=== PATIENT | female | born 1990 | race Caucasian/White ===

== ENCOUNTER 2016-06-05 00:53 | Emergency (ER) | payer OTHER ==
[2016-06-05 01:06] VITALS: TEMP 98; BMI 21.4
--- NOTE | 2016-06-05 01:11 | EDPRACDOC ---
- General Information Chief Complaint: Female Urogenital Problems Stated Complaint: ABDOMINAL PAIN Time Seen by Provider: 06/05/16 01:05 Information Source: Patient Mode Of Arrival: Car Home Medications: Home Medications Oxycodone Immediate Release [Oxycodone Immediate Release (OxyIR)] 5 mg PO Q6H PRN #20 tab 06/05/16 Phenazopyridine HCl [Pyridium] 200 mg PO TID #30 tablet 06/05/16 Sulfamethoxazole/Trimethoprim [Bactrim Ds Tablet] 1 tab PO BID #14 tab 06/05/16 Allergies/Adverse Reactions: Allergies Allergy/AdvReac Type Severity Reaction Status Date / Time No Known Allergies Allergy Verified 06/05/16 01:07 - History of Present Illness HPI: PT PRESENTS WITH LOWER BACK PAIN, SUPRAPUBIC PAIN AND DYSURIA. STATES THIS BEGAN EARLIER TODAY. STATES SHE WAS TREATED APPROX ONE MONTH AGO FOR A UTI. DENIES FEVER, CHILLS, NAUSEA OR VOMITING. Onset: Tuesday afternoon Urinary Pain Location: Reports: Suprapubic, Right Flank, Left Flank Symptom Onset: Reports: Gradual Pain Severity: Moderate Pain Quality: Reports: Aching, Burning History of: Reports: UTI : No (continuous active control) Oral Intake: Normal Urinary Output: Normal ED Past Medical History - History Reviewed Yes Nurses notes reviewed and agree except as marked - Patient Medical History Psychological History: Denies: Depression Surgical History: Denies: Hysterectomy - Social Medical History Smoking Status: Never smoker EDM Review of Systems - Review of Systems ROS Negative Except as Marked: Yes All systems reviewed and were negative except as marked - Physical Exam Constitutional: Alert Oriented to: Time, Person, Place Last recorded Vital Signs: Last Vital Signs Temp 98 F 06/05/16 01:02 Pulse 77 06/05/16 01:02 Resp 18 06/05/16 01:02 BP 119/63 06/05/16 01:02 Pulse Ox 98 06/05/16 01:02 Oxygen Pulse Oxygen Saturation 98 O2 Device Room Air Oxygen Flow Rate Fraction of Inspired Oxygen ( FIO2) - HEENT Head: Normal ( normocephalic) Eye Exam: Normal (PERRL, EOMI, Sclera white) Oropharynx: Normal (Pharynx:Moist without exudate,Gums-no swelling) Tympanic Membrane: Normal Nose: No Symptoms Reported (septum midline) Neck: Normal (FROM, trachea at midline) - Respiratory/Cardiovascular Respiratory: Normal - CTA (BBS clear to auscultation without adventitious sounds ) Cardiovascular: Normal (RRR without murmur, gallop or rub) - GI Auscultation: Normal (NABS) Palpation: Normal (Soft,No rebound or guarding, non distended) Tenderness: Moderate, Suprapubic, Other (LOWER BACK) Lara's Sign: Negative Rectal Exam: Deferred - Musculoskeletal Back: Normal (Non-Tender) Extremities: Normal (Normal tone, Pulses 2+ No cyanosis or edema, FROM) - Integumentary Skin: Normal, Warm, Dry Lymphatics: Normal (no adenopathy) - Neurologic Memory Impaired: Normal Motor Function: Normal (Normal tone, Pulses 2+ No cyanosis or edema, FROM) Cranial Nerve: Normal (CN II-X11 intact sensation, strength 5/5) Cerebellar: Normal Mood Description: Normal Perception: Normal - Differential Diagnosis Pyelonephritis, UTI Decision Time to Discharge: 01:49 - Departure Disposition: Home Condition: Stable Final Diagnosis: UTI (urinary tract infection) Qualifiers: Urinary tract infection type: acute cystitis Hematuria presence: with hematuria Qualified Code(s): N30.01 - Acute cystitis with hematuria Instructions: Urinary Tract Infection in Women (ED), Dysuria Education/Counseling Given To: Patient Education/Counseling Given Regarding: Diagnosis, Treatment, Prognosis, Follow Up Referrals: Ambrocio Nguyen MD [Staff Physician] - One Week Prescriptions: New Oxycodone Immediate Release [Oxycodone Immediate Release (OxyIR)] 5 mg PO Q6H PRN #20 tab PRN Reason: Pain Phenazopyridine HCl [Pyridium] 200 mg PO TID #30 tablet Sulfamethoxazole/Trimethoprim [Bactrim Ds Tablet] 1 tab PO BID #14 tab Additional Instructions: INCREASE FLUID INTAKE. FOLLOW UP WITH PRIMARY CARE PROVIDER NEXT WEEK. TAKE ALL ANTIBIOTICS PRESCRIBED. RETURN TO THE ED FOR WORSENING SYMPTOMS OR CONCERNS.
[2016-06-05 01:42] LABS: LEUKOCYTES/URINE 2+ (NEGATIVE); NITRITE/URINE NEG (NEGATIVE); RBC/URINE TNTC (0-5); URINE OCCULT BLOOD 3+ (NEG/TRACE); WBC/URINE TNTC (0-5)
[2016-06-05] MEDS ORDERED: OXYCODONE HCL 5 MG TABLET PO ONE (01:48)
[2016-06-05] MEDS ORDERED: PHENAZOPYRIDINE 100 MG TAB PO ONE (01:48)
[2016-06-05] MEDS ORDERED: TRIMETHOPRIM-SULFAMETHOXAZOLE TAB PO ONE (01:48)
[2016-06-05 02:16] VITALS: BP 112/65; PULSE 74
== END 2016-06-05 02:15 | disposition home or self-care (01) ==
LOC: ED 00:53
DX: N30.01 Acute cystitis with hematuria (principal)
CPT/HCPCS: 81001; 81025; 87077; 87086; 87186; 99282; J3490

== ENCOUNTER 2016-06-06 16:33 | Emergency (ER) | payer OTHER ==
[2016-06-06 16:33] VITALS: BMI 21.4
[2016-06-06 16:46] VITALS: BP 121/66; PULSE 89; TEMP 98.3
--- NOTE | 2016-06-06 17:18 | EDPRACDOC ---
- General Information Stated Complaint: ? ALLERGIC REACTION Time Seen by Provider: 06/06/16 17:12 Home Medications: Home Medications Oxycodone Immediate Release [Oxycodone Immediate Release (OxyIR)] 5 mg PO Q6H PRN #20 tab 06/05/16 Phenazopyridine HCl [Pyridium] 200 mg PO TID #30 tablet 06/05/16 Sulfamethoxazole/Trimethoprim [Bactrim Ds Tablet] 1 tab PO BID #14 tab 06/05/16 Ondansetron HCl [Zofran] 4 mg PO Q6H PRN #20 tab 06/06/16 Allergies/Adverse Reactions: Allergies Allergy/AdvReac Type Severity Reaction Status Date / Time No Known Allergies Allergy Verified 06/05/16 01:07 - History of Present Illness HPI: PT PRESENTS TODAY WITH POSSIBLE ALLERGIC REACTION TO BACTRIM. STATES WAS DIAGNOSED WITH UTI 2 DAYS AGO. STATES THAT SHE IS NAUSEATED WITH THE MEDICATION AND HAS 3 SMALL RED BUMPS TO HER FACE. NO APPARENT DISTRESS. DENIES RESPIRATORY INVOLVEMENT. Exposed to: Medication Symptoms started: Days Symptoms Developed: Reports: Other Reaction Severity: Shortness of breath: None, Rash: Mild, Difficult swallowing: None, Prurits: None Modifying factors: improves with: Not used Reaction Location: Reports: Face Associated Signs and Symptoms: Reports: Other (NAUSEA) ED Past Medical History - History Reviewed Yes Nurses notes reviewed and agree except as marked - Patient Medical History Psychological History: Denies: Depression Surgical History: Denies: Hysterectomy - Social Medical History Smoking Status: Never smoker EDM Review of Systems - Review of Systems ROS Negative Except as Marked: Yes All systems reviewed and were negative except as marked Constitutional: No Symptoms Reported Eyes: No Symptoms Reported Ears: No Symptoms Reported Throat: No Symptoms Reported Nose: No Symptoms Reported Respiratory: No Symptoms Reported Cardiovascular: No Symptoms Reported Gastrointestinal: Nausea Neurological: No Symptoms Reported Musculoskeletal: No Symptoms Reported Integumentary: Rash - Physical Exam Constitutional: Alert (Awake), No apparent distress Oriented to: Time, Person, Place Last recorded Vital Signs: Last Vital Signs Temp 98.3 F 06/06/16 16:45 Pulse 89 06/06/16 16:45 Resp 18 06/06/16 16:45 BP 121/66 06/06/16 16:45 Pulse Ox 95 06/06/16 16:45 Oxygen Pulse Oxygen Saturation 95 O2 Device Oxygen Flow Rate Fraction of Inspired Oxygen ( FIO2) - HEENT Head: Other (3 [place] SMALL RED BUMPS TO PTS FACE) Eye Exam: Normal Oropharynx: Normal Neck: Normal, Denies Pain, Midline - Respiratory/Cardiovascular Respiratory: Normal - CTA Cardiovascular: Normal - GI Palpation: Normal Tenderness: Non tender - Musculoskeletal Back: Normal Extremities: Normal - Integumentary Skin: Normal Lymphatics: Normal - Neurologic Cerebellar: Normal Mood Description: Normal Thought: Coherent Perception: Normal Decision Time to Discharge: 17:19 - Departure Disposition: Home Condition: Good Final Diagnosis: Adverse reaction to drug Instructions: Urinary Tract Infection in Women (ED) Education/Counseling Given To: Patient Education/Counseling Given Regarding: Diagnosis, Treatment, Follow Up Referrals: None,No Provider [Primary Care Provider] - One Week Prescriptions: New Ondansetron HCl [Zofran] 4 mg PO Q6H PRN #20 tab PRN Reason: Nausea/Vomiting No Action Oxycodone Immediate Release [Oxycodone Immediate Release (OxyIR)] 5 mg PO Q6H PRN #20 tab PRN Reason: Pain Phenazopyridine HCl [Pyridium] 200 mg PO TID #30 tablet Sulfamethoxazole/Trimethoprim [Bactrim Ds Tablet] 1 tab PO BID #14 tab Additional Instructions: EAT SOMETHING, THEN TAKE 1/2 PILL; ONE HOUR LATER, TAKE THE OTHER HALF Drink sips of Gatorade every 2-3 minutes while awake. Do NOT drink large volumes of fluid at once. If you vomit, take the nausea-vomiting medicine prescribed, wait ~ 30 minutes, and restart the sipping process. Return to the Emergency Department if you think you are getting dehydrated, have persistent abdominal pain that is unrelenting, have worse or different symptoms, or any concerns.
== END 2016-06-06 17:26 | disposition home or self-care (01) ==
LOC: EDMC 16:33
DX: T50.905A Adverse effect of unspecified drugs, medicaments and biological substances, initial encounter (principal); X58.XXXA Exposure to other specified factors, initial encounter; Y93.9 Activity, unspecified
CPT/HCPCS: 99282